=== PATIENT | female | born 1955 | race Caucasian/White ===

== ENCOUNTER → 2019-02-20 | Outpatient (CLI) | payer MEDICARE ==
[~2019-02-20] MED LIST: ASPIRIN81 M1 PO; ATIVAN1 MG PO; Aggrenox 25 MG-1 CER PO; CALCITONIN200 IU/Act NS; CALCIUM 600 +1 EACH PO; COZAAR100 MG PO; CYTOTEC200 MCG PO; DICLOFENAC SOD75 MG PO; DULCOLAX5 M1 PO; FOSAMAX70 MG PO; LANOXIN0.125 MG PO; LIPITOR40 MG PO; MULTI VITAMINS1 TAB PO; MULTIVITAMIN1 TAB PO; NEURONTIN300 MG PO; NORCO 325 MG-101 TAB PO; NORCO 325 MG-7.1 TAB PO; NORFLEX100 MG PO; NORTRIPTYLINE25 M1 PO; NORVASC5 MG PO; OXYCODONE HCL10 M1 PO; PREMPRO 0.3 MG-1 TA1 PO; PROTONIX40 MG PO; TRAMADOL HCL50 MG PO; ULTRAM50 MG PO; VICODIN 5/500 505 MG PO; VOLTAREN50 M1 PO
[2019-02-20 15:36] LABS: BASO % 0.8 % (0.0-1.0); BILIRUBIN NEGATIVE (NEGATIVE); BLOOD NEGATIVE (NEGATIVE); CLARITY CLEAR (CLEAR); COLOR YELLOW (YELLOW); EOS # 0.2 10*3/uL (0.0-0.4); EOS % 3.3 % (1.0-4.0); GLUCOSE NEGATIVE (NEGATIVE); HEMATOCRIT 42.5 % (37.0-47.0); HEMOGLOBIN 14.2 g/dl (12.0-16.0); KETONE NEGATIVE (NEGATIVE); LEUKO ESTERASE 1+ (NEGATIVE); LYMPH # 2.2 10*3/uL (1.3-4.4); MEAN CELL VOLUME 93.6 fl (81.0-99.0); MEAN CORPUSCULAR HGB 31.3 pg (27.0-31.0); MEAN CORPUSCULAR HGB CONC 33.4 g/dl (33.0-37.0); MONO # 0.4 10*3/uL (0.1-1.0); MONO % 7.7 % (3.0-9.0); NEUT # 2.2 10*3/uL (2.3-7.9); NITRITE NEGATIVE (NEGATIVE); PH 5.5 (5.0-9.0); PLATELET COUNT AUTOMATED 125 10*3/uL (130-400); RED BLOOD COUNT 4.54 10*6/uL (4.10-5.10); RED CELL DISTRI WIDTH 12.8 % (0-14.5); RETICULOCYTE % 0.71 % (0.50-2.50); UROBILINOGEN 0.2 E.U./dl (0.2-1.0); WHITE BLOOD COUNT 4.9 10*3/uL (4.8-10.8)
[2019-02-20 15:44] LABS: BACTERIA 1+; HYALINE CAST 0-2; MUCOUS 1+
[2019-02-20 16:12] LABS: ALBUMIN 3.8 gm/dl (3.1-4.5); ALKALINE PHOSPHATASE 117 U/L (45-117); BUN 16 mg/dl (7-24); CHLORIDE 107 mmol/L (98-107); CHOLESTEROL 217 mg/dL (<200); GAMMA GLUTAMYL TRANSPEPTIDASE 67 U/L (5-55); IRON 95 ug/dL (50-170); POTASSIUM 3.7 mmol/L (3.5-5.1); SGOT/AST 21 IU/L (3-35); SGPT/ALT 22 U/L (12-78); SODIUM 137 mmol/L (136-145); TOTAL PROTEIN 8.6 gm/dL (6.4-8.2); TRIGLYCERIDES 131 mg/dl (<150); VLDL CHOLESTEROL 26 mg/dL (6-40)
[2019-02-20 16:26] LABS: DIGOXIN 0.54 ng/ml (0.8-2.0); HDL CHOLESTEROL 69 mg/dl (40-60); LDL CHOLESTEROL 122 mg/dL (9-159); TOTAL IRON BINDING CAPACITY 390 ug/dl (250-450)
[2019-02-20 16:34] LABS: FERRITIN 58.1 ng/mL (10.0-291.0); VITAMIN D, 25-HYDROXY 27.4 ng/mL (30-100)
== END | disposition home or self-care (01) ==
LOC: LAB 14:56
PROVIDERS: Family Medicine
DX: R79.89 Other specified abnormal findings of blood chemistry (principal); R53.83 Other fatigue; E55.9 Vitamin D deficiency, unspecified; Z79.899 Other long term (current) drug therapy

== ENCOUNTER → 2019-12-10 | Outpatient (CLI) | payer MEDICARE ==
[2019-12-10 10:18] LABS: BASO # 0.1 10*3/uL (0.0-0.1); BASO % 0.9 % (0.0-1.0); EOS # 0.2 10*3/uL (0.0-0.4); EOS % 4.3 % (1.0-4.0); HEMATOCRIT 42.4 % (37.0-47.0); HEMOGLOBIN 14.1 g/dl (12.0-16.0); LYMPH # 2.1 10*3/uL (1.3-4.4); LYMPH % 39.4 % (27.0-41.0); MEAN CELL VOLUME 93.4 fl (81.0-99.0); MEAN CORPUSCULAR HGB 31.1 pg (27.0-31.0); MEAN CORPUSCULAR HGB CONC 33.3 g/dl (33.0-37.0); MEAN PLATELET VOLUME 12.1 fl (9.6-12.3); MONO # 0.4 10*3/uL (0.1-1.0); MONO % 8.2 % (3.0-9.0); NEUT # 2.5 10*3/uL (2.3-7.9); PLATELET COUNT AUTOMATED 141 10*3/uL (130-400); RED BLOOD COUNT 4.54 10*6/uL (4.10-5.10); RED CELL DISTRI WIDTH 13.1 % (0-14.5); RETICULOCYTE % 0.99 % (0.50-2.50); WHITE BLOOD COUNT 5.4 10*3/uL (4.8-10.8)
[2019-12-10 10:20] LABS: BILIRUBIN NEGATIVE (NEGATIVE); BLOOD NEGATIVE (NEGATIVE); CLARITY SL CLOUDY (CLEAR); COLOR YELLOW (YELLOW); GLUCOSE NEGATIVE (NEGATIVE); KETONE NEGATIVE (NEGATIVE); LEUKO ESTERASE 2+ (NEGATIVE); NITRITE NEGATIVE (NEGATIVE); PH 6.5 (5.0-9.0); SPECIFIC GRAVITY 1.015 (1.005-1.030); UROBILINOGEN 0.2 E.U./dl (0.2-1.0)
[2019-12-10 10:32] LABS: BACTERIA 1+; WBC 31-40 wbc/hpf (0-5)
[2019-12-10 10:45] LABS: ALBUMIN 3.8 gm/dl (3.1-4.5); ALKALINE PHOSPHATASE 116 U/L (45-117); BUN 13 mg/dl (7-24); CHLORIDE 104 mmol/L (98-107); CHOLESTEROL 231 mg/dL (<200); CPK 78 U/L (26-192); CREATININE 0.87 mg/dL (0.55-1.02); GAMMA GLUTAMYL TRANSPEPTIDASE 67 U/L (5-55); HDL CHOLESTEROL 60 mg/dl (40-60); IRON 146 ug/dL (50-170); LDL CHOLESTEROL 137 mg/dL (9-159); POTASSIUM 3.9 mmol/L (3.5-5.1); SGOT/AST 27 IU/L (3-35); SGPT/ALT 24 U/L (12-78); SODIUM 139 mmol/L (136-145); T3 UPTAKE 30 % (31-39); THYROXINE (T4) TOTAL 14.3 ug/dl (4.8-13.9); TOTAL PROTEIN 8.3 gm/dL (6.4-8.2); TRIGLYCERIDES 168 mg/dl (<150); VLDL CHOLESTEROL 34 mg/dL (6-40)
[2019-12-10 10:56] LABS: DIGOXIN 0.67 ng/ml (0.8-2.0); TOTAL IRON BINDING CAPACITY 373 ug/dl (250-450)
[2019-12-10 11:30] LABS: FERRITIN 96.6 ng/mL (10.0-291.0); VITAMIN D, 25-HYDROXY 20.5 ng/mL (30-100)
== END | disposition home or self-care (01) ==
LOC: RAD 09:00 → LAB 09:02
PROVIDERS: Family Medicine
DX: Z12.31 Encounter for screening mammogram for malignant neoplasm of breast (principal); R79.89 Other specified abnormal findings of blood chemistry; M81.0 Age-related osteoporosis without current pathological fracture; R53.83 Other fatigue; E55.9 Vitamin D deficiency, unspecified; Z79.899 Other long term (current) drug therapy

== ENCOUNTER → 2019-12-29 | Outpatient (CLI) | payer MEDICARE | END | disposition home or self-care (01) | LOC: US 12:50 | DX: E03.8 Other specified hypothyroidism (principal) ==

== ENCOUNTER → 2020-04-13 | Outpatient (CLI) | payer MEDICARE ==
[~2020-04-13] MED LIST changes: +LEVOTHYROXINE50 MCG PO; +MORPHINE SULFAT15 M7 PO; +PROPRANOLOL HCL10 MG PO; +VITAMIN E400 UNI3 PO
[2020-04-13 14:23] LABS: ALBUMIN 3.6 gm/dl (3.1-4.5); BILIRUBIN, DIRECT 0.2 mg/dL (0.0-0.2)
== END | disposition home or self-care (01) ==
LOC: LAB 12:53
PROVIDERS: Nurse Practitioner Family
DX: K75.81 Nonalcoholic steatohepatitis (NASH) (principal); K74.60 Unspecified cirrhosis of liver

== ENCOUNTER → 2020-04-15 | Outpatient (CLI) | payer MEDICARE | END | disposition home or self-care (01) | LOC: US 01:59 | DX: K74.60 Unspecified cirrhosis of liver (principal); Z90.49 Acquired absence of other specified parts of digestive tract ==

== ENCOUNTER → 2020-04-16 | Day surgery (SDC) | payer MEDICARE ==
[~2020-04-16] VITALS: Ht 170.1 cm; Wt 73.5 kg
[2020-04-16 07:15] VITALS: BP 144/75
[2020-04-16 08:30] VITALS: BP 108/57
[2020-04-16 08:45] VITALS: BP 113/60
[2020-04-16 09:00] VITALS: BP 124/60
== END | disposition home or self-care (01) ==
LOC: SDC 04-12 11:00
DX: K29.70 Gastritis, unspecified, without bleeding (principal); I85.10 Secondary esophageal varices without bleeding; K74.60 Unspecified cirrhosis of liver; K21.9 Gastro-esophageal reflux disease without esophagitis; I10 Essential (primary) hypertension; I25.10 Atherosclerotic heart disease of native coronary artery without angina pectoris; J44.9 Chronic obstructive pulmonary disease, unspecified; Z98.890 Other specified postprocedural states; Z79.899 Other long term (current) drug therapy

== ENCOUNTER → 2020-05-27 | Outpatient (CLI) | payer MEDICARE ==
[2020-05-27 14:18] LABS: BASO # 0.1 10*3/uL (0.0-0.1); BASO % 1.2 % (0.0-1.0); EOS # 0.2 10*3/uL (0.0-0.4); EOS % 4.1 % (1.0-4.0); HEMATOCRIT 42.4 % (37.0-47.0); LYMPH # 1.7 10*3/uL (1.3-4.4); LYMPH % 32.5 % (27.0-41.0); MEAN CELL VOLUME 92.2 fl (81.0-99.0); MEAN CORPUSCULAR HGB 30.9 pg (27.0-31.0); MEAN CORPUSCULAR HGB CONC 33.5 g/dl (33.0-37.0); MEAN PLATELET VOLUME 12.9 fl (9.6-12.3); MONO # 0.4 10*3/uL (0.1-1.0); MONO % 6.9 % (3.0-9.0); NEUT # 2.8 10*3/uL (2.3-7.9); NEUT % 55.1 % (47.0-73.0); PLATELET COUNT AUTOMATED 137 10*3/uL (130-400); RED CELL DISTRI WIDTH 13.2 % (0-14.5); RETICULOCYTE % 1.01 % (0.50-2.50); WHITE BLOOD COUNT 5.1 10*3/uL (4.8-10.8)
[2020-05-27 14:47] LABS: ALKALINE PHOSPHATASE 107 U/L (45-117); BUN 16 mg/dl (7-24); CHLORIDE 107 mmol/L (98-107); CHOLESTEROL 268 mg/dL (<200); CPK 80 U/L (26-192); CREATININE 0.97 mg/dL (0.55-1.02); GAMMA GLUTAMYL TRANSPEPTIDASE 67 U/L (5-55); HDL CHOLESTEROL 59 mg/dl (40-60); IRON 117 ug/dL (50-170); LDL CHOLESTEROL 177 mg/dL (9-159); POTASSIUM 4.3 mmol/L (3.5-5.1); SGOT/AST 25 IU/L (3-35); SGPT/ALT 23 U/L (12-78); SODIUM 138 mmol/L (136-145); T3 UPTAKE 31 % (31-39); THYROXINE (T4) TOTAL 14.6 ug/dl (4.8-13.9); TOTAL IRON BINDING CAPACITY 396 ug/dl (250-450); TOTAL PROTEIN 8.8 gm/dL (6.4-8.2); TRIGLYCERIDES 159 mg/dl (<150); VLDL CHOLESTEROL 32 mg/dL (6-40)
[2020-05-27 14:48] LABS: BILIRUBIN, DIRECT 0.2 mg/dL (0.0-0.2); FREE T4 1.26 ng/dl (0.76-1.46)
== END | disposition home or self-care (01) ==
LOC: LAB 12:55
PROVIDERS: Family Medicine; Internal Medicine
DX: E55.9 Vitamin D deficiency, unspecified (principal); R79.89 Other specified abnormal findings of blood chemistry; R53.83 Other fatigue; E03.8 Other specified hypothyroidism; K76.0 Fatty (change of) liver, not elsewhere classified

== ENCOUNTER → 2020-08-06 | Outpatient (CLI) | payer MEDICARE | END | disposition home or self-care (01) | LOC: COVID19 00:19 | PROVIDERS: ATTEND Internal Medicine Gastroenterology | DX: Z11.59 Encounter for screening for other viral diseases (principal) ==

== ENCOUNTER → 2021-02-08 | Outpatient (CLI) | payer MEDICARE ==
[2021-02-08 14:19] LABS: BILIRUBIN Negative (Negative); BLOOD Negative (Negative); CLARITY Clear (Clear); COLOR Yellow (Yellow); GLUCOSE Negative (Negative); KETONE Negative (Negative); LEUKO ESTERASE 1+ (Negative); NITRITE Negative (Negative)
[2021-02-08 14:32] LABS: BASO # 0.1 10*3/uL (0.0-0.1); EOS # 0.2 10*3/uL (0.0-0.4); EOS % 3.4 % (1.0-4.0); HEMATOCRIT 40.2 % (37.0-47.0); LYMPH # 2.1 10*3/uL (1.3-4.4); LYMPH % 35.7 % (27.0-41.0); MEAN CORPUSCULAR HGB 30.5 pg (27.0-31.0); MEAN CORPUSCULAR HGB CONC 33.6 g/dl (33.0-37.0); MEAN PLATELET VOLUME 12.4 fl (9.6-12.3); MONO # 0.5 10*3/uL (0.1-1.0); MONO % 8.8 % (3.0-9.0); NEUT % 50.9 % (47.0-73.0); PLATELET COUNT AUTOMATED 150 10*3/uL (130-400); RED BLOOD COUNT 4.42 10*6/uL (4.10-5.10); RED CELL DISTRI WIDTH 13.2 % (0-14.5); RETICULOCYTE % 1.13 % (0.50-2.50); WHITE BLOOD COUNT 5.9 10*3/uL (4.8-10.8)
[2021-02-08 14:48] LABS: ALBUMIN 3.7 gm/dl (3.1-4.5); BUN 16 mg/dl (7-24); CHLORIDE 105 mmol/L (98-107); CHOLESTEROL 288 mg/dL (<200); CREATININE 0.92 mg/dL (0.55-1.02); GAMMA GLUTAMYL TRANSPEPTIDASE 55 U/L (5-55); HDL CHOLESTEROL 55 mg/dl (40-60); IRON 81 ug/dL (50-170); LDL CHOLESTEROL 180 mg/dL (9-159); POTASSIUM 3.9 mmol/L (3.5-5.1); SGOT/AST 22 IU/L (3-35); SGPT/ALT 23 U/L (12-78); SODIUM 138 mmol/L (136-145); THYROXINE (T4) TOTAL 13.8 ug/dl (4.8-13.9); TOTAL IRON BINDING CAPACITY 368 ug/dl (250-450); TOTAL PROTEIN 8.4 gm/dL (6.4-8.2); TRIGLYCERIDES 264 mg/dl (<150); VLDL CHOLESTEROL 53 mg/dL (6-40)
[2021-02-08 15:01] LABS: ALKALINE PHOSPHATASE 114 U/L (45-117); DIGOXIN 0.87 ng/ml (0.8-2.0); T3 UPTAKE 30 % (31-39)
[2021-02-08 15:53] LABS: BACTERIA TRACE
[2021-02-08 17:22] LABS: FERRITIN 82.1 ng/mL (10.0-291.0)
== END | disposition home or self-care (01) ==
LOC: LAB 13:22 → US 13:30
PROVIDERS: Family Medicine; ATTEND Internal Medicine
DX: E04.1 Nontoxic single thyroid nodule (principal); R79.89 Other specified abnormal findings of blood chemistry; R53.83 Other fatigue; E78.5 Hyperlipidemia, unspecified; E55.9 Vitamin D deficiency, unspecified

== ENCOUNTER → 2021-03-07 | Outpatient (CLI) | payer MEDICARE ==
[2021-03-07 12:56] LABS: ALBUMIN 3.6 gm/dl (3.1-4.5); FREE T4 1.29 ng/dl (0.76-1.46); TOTAL PROTEIN 8.4 gm/dL (6.4-8.2)
[2021-03-07 13:03] LABS: BILIRUBIN, DIRECT 0.2 mg/dL (0.0-0.2); THYROID STIM HORMONE (HS) 3.2 uIU/ml (0.358-4.75)
== END | disposition home or self-care (01) ==
LOC: LAB 11:33
PROVIDERS: ATTEND Internal Medicine
DX: E55.9 Vitamin D deficiency, unspecified (principal); E03.8 Other specified hypothyroidism; E78.5 Hyperlipidemia, unspecified; K76.0 Fatty (change of) liver, not elsewhere classified

== ENCOUNTER → 2022-02-16 | Outpatient (CLI) | payer MEDICARE | END | disposition home or self-care (01) | LOC: RAD 12:22 | PROVIDERS: ATTEND Anesthesiology Pain Medicine | DX: M51.37 Other intervertebral disc degeneration, lumbosacral region (principal); M96.1 Postlaminectomy syndrome, not elsewhere classified ==

== ENCOUNTER → 2022-04-10 | Outpatient (CLI) | payer MEDICARE ==
[2022-04-10 10:40] LABS: BASO # 0.1 10*3/uL (0.0-0.1); BASO % 1.2 % (0.0-1.0); EOS # 0.2 10*3/uL (0.0-0.4); HEMATOCRIT 41.3 % (37.0-47.0); LYMPH # 1.7 10*3/uL (1.3-4.4); LYMPH % 28.4 % (27.0-41.0); MEAN CELL VOLUME 91.2 fl (81.0-99.0); MEAN CORPUSCULAR HGB 30.5 pg (27.0-31.0); MEAN CORPUSCULAR HGB CONC 33.4 g/dl (33.0-37.0); MEAN PLATELET VOLUME 12.4 fl (9.6-12.3); MONO # 0.5 10*3/uL (0.1-1.0); MONO % 8.4 % (3.0-9.0); NEUT # 3.5 10*3/uL (2.3-7.9); NEUT % 57.8 % (47.0-73.0); PLATELET COUNT AUTOMATED 148 10*3/uL (130-400); RED BLOOD COUNT 4.53 10*6/uL (4.10-5.10); RETICULOCYTE % 0.97 % (0.50-2.50)
[2022-04-10 10:49] LABS: BILIRUBIN Negative (Negative); BLOOD Negative (Negative); CLARITY Clear (Clear); COLOR Yellow (Yellow); GLUCOSE Negative (Negative); KETONE Negative (Negative); LEUKO ESTERASE 1+ (Negative); NITRITE Negative (Negative)
[2022-04-10 11:09] LABS: ALKALINE PHOSPHATASE 113 U/L (45-117); BUN 14 mg/dl (7-24); CHLORIDE 102 mmol/L (98-107); CHOLESTEROL 148 mg/dL (<200); CREATININE 0.92 mg/dL (0.55-1.02); GAMMA GLUTAMYL TRANSPEPTIDASE 92 U/L (5-55); IRON 89 ug/dL (50-170); LDL CHOLESTEROL 59 mg/dL (9-159); POTASSIUM 3.9 mmol/L (3.5-5.1); SGOT/AST 31 IU/L (3-35); SGPT/ALT 30 U/L (12-78); SODIUM 137 mmol/L (136-145); TOTAL IRON BINDING CAPACITY 397 ug/dl (250-450); TOTAL PROTEIN 8.5 gm/dL (6.4-8.2); TRIGLYCERIDES 169 mg/dl (<150)
[2022-04-10 11:16] LABS: VITAMIN D, 25-HYDROXY 56.1 ng/mL (30-100)
[2022-04-10 11:17] LABS: FERRITIN 72.9 ng/mL (10.0-291.0)
[2022-04-10 11:18] LABS: DIGOXIN 1.02 ng/ml (0.8-2.0)
== END | disposition home or self-care (01) ==
LOC: LAB 10:14
PROVIDERS: ATTEND Family Medicine
DX: E78.5 Hyperlipidemia, unspecified (principal); E55.9 Vitamin D deficiency, unspecified; R79.89 Other specified abnormal findings of blood chemistry; R53.83 Other fatigue; R74.8 Abnormal levels of other serum enzymes

== ENCOUNTER → 2022-06-01 | Outpatient (CLI) | payer MEDICARE | END | disposition home or self-care (01) | LOC: CARD 13:00 | PROVIDERS: ATTEND Internal Medicine Cardiovascular Disease | DX: R06.00 Dyspnea, unspecified (principal) ==

== ENCOUNTER → 2022-12-12 | Outpatient (CLI) | payer MEDICARE | END | disposition home or self-care (01) | LOC: RAD 15:03 | PROVIDERS: ATTEND Orthopaedic Surgery | DX: M76.9 Unspecified enthesopathy, lower limb, excluding foot (principal) ==

== ENCOUNTER → 2023-06-25 | Outpatient (CLI) | payer MEDICARE ==
[2023-06-25 13:33] LABS: BASO # 0.1 10*3/uL (0.0-0.1); EOS # 0.2 10*3/uL (0.0-0.4); EOS % 4.2 % (1.0-4.0); HEMATOCRIT 37.7 % (37.0-47.0); LYMPH # 1.5 10*3/uL (1.3-4.4); LYMPH % 29.6 % (27.0-41.0); MEAN CELL VOLUME 91.1 fl (81.0-99.0); MEAN CORPUSCULAR HGB 30.4 pg (27.0-31.0); MEAN CORPUSCULAR HGB CONC 33.4 g/dl (33.0-37.0); MEAN PLATELET VOLUME 12.1 fl (9.6-12.3); MONO # 0.4 10*3/uL (0.1-1.0); MONO % 8.3 % (3.0-9.0); NEUT # 2.9 10*3/uL (2.3-7.9); NEUT % 56.9 % (47.0-73.0); PLATELET COUNT AUTOMATED 150 10*3/uL (130-400); RED BLOOD COUNT 4.14 10*6/uL (4.10-5.10); RED CELL DISTRI WIDTH 12.7 % (0-14.5); RETICULOCYTE % 1.14 % (0.50-2.50)
[2023-06-25 13:34] LABS: BILIRUBIN Negative (Negative); BLOOD Negative (Negative); CLARITY Clear (Clear); COLOR Yellow (Yellow); GLUCOSE Negative (Negative); KETONE Negative (Negative); LEUKO ESTERASE 2+ (Negative); NITRITE Negative (Negative); SPECIFIC GRAVITY 1.015 (1.001-1.030)
[2023-06-25 13:42] LABS: EPITHELIAL CELLS 21-30
[2023-06-25 13:43] LABS: BACTERIA 2+; WBC 16-20 wbc/hpf (0-5)
[2023-06-25 14:03] LABS: ALKALINE PHOSPHATASE 116 U/L (46-116); BUN 14 mg/dl (9-23); CHLORIDE 102 mmol/L (98-107); CHOLESTEROL 141 mg/dL (<200); DIGOXIN 0.53 ng/ml (0.8-2.0); GAMMA GLUTAMYL TRANSPEPTIDASE 73 U/L (0-73); LDL CHOLESTEROL 55 mg/dL (9-159); POTASSIUM 3.7 mmol/L (3.4-5.1); SGPT/ALT 13 U/L (10-49); T3 UPTAKE 20.8 % (22.4-36.7); TOTAL PROTEIN 7.9 gm/dL (6.0-8.0); TRIGLYCERIDES 197 mg/dl (<150)
[2023-06-25 14:04] LABS: VITAMIN D, 25-HYDROXY 41.6 ng/mL (30-100)
== END | disposition home or self-care (01) ==
LOC: LAB 13:05
PROVIDERS: ATTEND Family Medicine
DX: E55.9 Vitamin D deficiency, unspecified (principal); R79.89 Other specified abnormal findings of blood chemistry; R53.83 Other fatigue; E78.5 Hyperlipidemia, unspecified

== ENCOUNTER → 2023-09-20 | Outpatient (CLI) | payer MEDICARE | END | disposition home or self-care (01) | LOC: MAMMO 13:59 | PROVIDERS: ATTEND Family Medicine | DX: Z12.31 Encounter for screening mammogram for malignant neoplasm of breast (principal) ==

== ENCOUNTER → 2023-12-26 | Outpatient (CLI) | payer MEDICARE ==
[2023-12-26 13:09] LABS: BASO # 0.1 10*3/uL (0.0-0.1); BASO % 0.8 % (0.0-1.0); EOS # 0.3 10*3/uL (0.0-0.4); EOS % 4.3 % (1.0-4.0); HEMATOCRIT 39.6 % (37.0-47.0); LYMPH # 1.3 10*3/uL (1.3-4.4); LYMPH % 21.1 % (27.0-41.0); MEAN CELL VOLUME 90.2 fl (81.0-99.0); MEAN CORPUSCULAR HGB 29.8 pg (27.0-31.0); MEAN CORPUSCULAR HGB CONC 33.1 g/dl (33.0-37.0); MEAN PLATELET VOLUME 11.9 fl (9.6-12.3); MONO # 0.6 10*3/uL (0.1-1.0); MONO % 9.6 % (3.0-9.0); NEUT % 63.9 % (47.0-73.0); PLATELET COUNT AUTOMATED 179 10*3/uL (130-400); RED BLOOD COUNT 4.39 10*6/uL (4.10-5.10); RED CELL DISTRI WIDTH 12.4 % (0-14.5); RETICULOCYTE % 0.94 % (0.50-2.50); WHITE BLOOD COUNT 6.3 10*3/uL (4.8-10.8)
[2023-12-26 13:32] LABS: BILIRUBIN Negative (Negative); BLOOD Negative (Negative); CLARITY Clear (Clear); COLOR Yellow (Yellow); GLUCOSE Negative (Negative); KETONE Negative (Negative); LEUKO ESTERASE 2+ (Negative); NITRITE Negative (Negative)
[2023-12-26 13:45] LABS: ALKALINE PHOSPHATASE 127 U/L (46-116); BUN 14 mg/dl (9-23); CHLORIDE 100 mmol/L (98-107); CHOLESTEROL 139 mg/dL (<200); DIGOXIN 0.63 ng/ml (0.8-2.0); GAMMA GLUTAMYL TRANSPEPTIDASE 79 U/L (0-73); LDL CHOLESTEROL 61 mg/dL (9-159); POTASSIUM 3.9 mmol/L (3.4-5.1); SGPT/ALT 12 U/L (5-49); T3 UPTAKE 22.9 % (22.4-36.7); THYROXINE (T4) TOTAL 10.9 ug/dl (4.5-10.9); TOTAL PROTEIN 8.3 gm/dL (6.0-8.0); TRIGLYCERIDES 144 mg/dl (<150)
[2023-12-26 13:47] LABS: BACTERIA TRACE; WBC 16-20 wbc/hpf (0-5)
[2023-12-26 14:39] LABS: VITAMIN D, 25-HYDROXY 56.8 ng/mL (30-100)
== END | disposition home or self-care (01) ==
LOC: LAB 12:49
PROVIDERS: ATTEND Family Medicine
DX: R79.89 Other specified abnormal findings of blood chemistry (principal); R53.83 Other fatigue; E55.9 Vitamin D deficiency, unspecified; E78.5 Hyperlipidemia, unspecified

== ENCOUNTER → 2024-06-30 | Outpatient (CLI) | payer MEDICARE ==
[2024-06-30 13:36] LABS: BILIRUBIN Negative (Negative); BLOOD Negative (Negative); CLARITY Clear (Clear); COLOR Yellow (Yellow); GLUCOSE Negative (Negative); KETONE Negative (Negative); LEUKO ESTERASE 2+ (Negative); NITRITE Negative (Negative); SPECIFIC GRAVITY 1.015 (1.001-1.030)
[2024-06-30 13:37] LABS: BASO % 0.7 % (0.0-1.0); EOS # 0.3 10*3/uL (0.0-0.4); EOS % 4.5 % (1.0-4.0); HEMATOCRIT 36.9 % (37.0-47.0); LYMPH # 1.4 10*3/uL (1.3-4.4); LYMPH % 24.5 % (27.0-41.0); MEAN CELL VOLUME 92.3 fl (81.0-99.0); MEAN CORPUSCULAR HGB 30.5 pg (27.0-31.0); MEAN CORPUSCULAR HGB CONC 33.1 g/dl (33.0-37.0); MEAN PLATELET VOLUME 11.6 fl (9.6-12.3); MONO # 0.6 10*3/uL (0.1-1.0); NEUT # 3.4 10*3/uL (2.3-7.9); NEUT % 60.1 % (47.0-73.0); PLATELET COUNT AUTOMATED 139 10*3/uL (130-400); RETICULOCYTE % 1.03 % (0.50-2.50); WHITE BLOOD COUNT 5.6 10*3/uL (4.8-10.8)
[2024-06-30 13:46] LABS: BACTERIA 1+; MUCOUS TRACE; WBC 31-40 wbc/hpf (0-5)
[2024-06-30 14:02] LABS: ALKALINE PHOSPHATASE 111 U/L (46-116); BUN 12 mg/dl (9-23); CHLORIDE 102 mmol/L (98-107); CHOLESTEROL 130 mg/dL (<200); GAMMA GLUTAMYL TRANSPEPTIDASE 71 U/L (0-73); LDL CHOLESTEROL 48 mg/dL (9-159); POTASSIUM 3.7 mmol/L (3.4-5.1); SGPT/ALT 10 U/L (5-49); TOTAL PROTEIN 7.8 gm/dL (6.0-8.0); TRIGLYCERIDES 193 mg/dl (<150)
[2024-06-30 14:17] LABS: VITAMIN D, 25-HYDROXY 60.7 ng/mL (30-100)
== END | disposition home or self-care (01) ==
LOC: LAB 13:08
PROVIDERS: ATTEND Family Medicine
DX: R79.89 Other specified abnormal findings of blood chemistry (principal); R53.83 Other fatigue; E55.9 Vitamin D deficiency, unspecified; E78.5 Hyperlipidemia, unspecified

== ENCOUNTER → 2024-08-28 | Outpatient (CLI) | payer MEDICARE ==
[2024-08-28 15:06] LABS: BILIRUBIN Negative (Negative); BLOOD Negative (Negative); CLARITY Clear (Clear); COLOR Yellow (Yellow); GLUCOSE Negative (Negative); KETONE Negative (Negative); LEUKO ESTERASE Trace (Negative); NITRITE Negative (Negative); SPECIFIC GRAVITY 1.015 (1.001-1.030)
[2024-08-28 15:21] LABS: URINE CREATININE RANDOM 50.99 mg/dL
[2024-08-28 15:34] LABS: BUN 14 mg/dl (9-23); CHLORIDE 105 mmol/L (98-107); POTASSIUM 3.9 mmol/L (3.4-5.1)
[2024-08-28 15:41] LABS: BACTERIA 1+
== END | disposition home or self-care (01) ==
LOC: LAB 14:12
PROVIDERS: ATTEND Internal Medicine Nephrology
DX: N18.30 Chronic kidney disease, stage 3 unspecified (principal)

== ENCOUNTER → 2024-10-16 | Outpatient (CLI) | payer MEDICARE ==
[2024-10-16 10:33] LABS: BILIRUBIN Negative (Negative); BLOOD Negative (Negative); CLARITY Clear (Clear); COLOR Yellow (Yellow); GLUCOSE Negative (Negative); KETONE Negative (Negative); LEUKO ESTERASE Trace (Negative); NITRITE Negative (Negative)
[2024-10-16 10:34] LABS: BASO # 0.1 10*3/uL (0.0-0.1); BASO % 1.1 % (0.0-1.0); EOS # 0.3 10*3/uL (0.0-0.4); EOS % 5.3 % (1.0-4.0); HEMATOCRIT 39.9 % (37.0-47.0); MEAN CELL VOLUME 92.8 fl (81.0-99.0); MEAN CORPUSCULAR HGB 29.8 pg (27.0-31.0); MEAN CORPUSCULAR HGB CONC 32.1 g/dl (33.0-37.0); MEAN PLATELET VOLUME 12.4 fl (9.6-12.3); MONO # 0.4 10*3/uL (0.1-1.0); MONO % 9.4 % (3.0-9.0); NEUT # 2.5 10*3/uL (2.3-7.9); NEUT % 53.7 % (47.0-73.0); PLATELET COUNT AUTOMATED 131 10*3/uL (130-400); RED CELL DISTRI WIDTH 12.9 % (0-14.5); RETICULOCYTE % 0.89 % (0.50-2.50); WHITE BLOOD COUNT 4.7 10*3/uL (4.8-10.8)
[2024-10-16 10:45] LABS: BACTERIA TRACE; MUCOUS 1+
[2024-10-16 10:58] LABS: ALKALINE PHOSPHATASE 57 U/L (46-116); BUN 13 mg/dl (9-23); CHLORIDE 107 mmol/L (98-107); CHOLESTEROL 137 mg/dL (<200); GAMMA GLUTAMYL TRANSPEPTIDASE 48 U/L (0-73); LDL CHOLESTEROL 53 mg/dL (9-159); POTASSIUM 3.9 mmol/L (3.4-5.1); SGPT/ALT 19 U/L (5-49); T3 UPTAKE 24.9 % (22.4-36.7); THYROXINE (T4) TOTAL 13.4 ug/dl (4.5-10.9); TOTAL PROTEIN 8.1 gm/dL (6.0-8.0); TRIGLYCERIDES 97 mg/dl (<150); URIC ACID 3.8 mg/dL (3.1-7.8)
[2024-10-16 11:00] LABS: B-hCG (QUALITATIVE) BORDERLINE (NEGATIVE)
[2024-10-16 11:10] LABS: VITAMIN D, 25-HYDROXY 61.9 ng/mL (30-100)
[2024-10-17 04:04] LABS: DHEA SULFATE 9.1 ug/dL (20.4-186.6)
[2024-10-17 15:05] LABS: ANTI-DSDNA ANTIBODIES 2 IU/mL (0-9)
[2024-10-19 16:03] LABS: INSULIN-LIKE GROWTH FACTOR-1 35 ng/mL (52-196)
[2024-10-21 19:02] LABS: DEHYDROEPIANDROSTERONE 76 ng/dL (21-402)
[2024-10-22 13:03] LABS: TESTOS, FREE 0.4 pg/mL (0.0-4.2)
== END | disposition home or self-care (01) ==
LOC: LAB 00:10 → US 09:00 → LAB 09:00
PROVIDERS: ATTEND Family Medicine
DX: K74.60 Unspecified cirrhosis of liver (principal); R94.5 Abnormal results of liver function studies; K76.0 Fatty (change of) liver, not elsewhere classified; R79.89 Other specified abnormal findings of blood chemistry; R53.83 Other fatigue; E78.5 Hyperlipidemia, unspecified; E55.9 Vitamin D deficiency, unspecified; Z90.49 Acquired absence of other specified parts of digestive tract; Z79.899 Other long term (current) drug therapy

== ENCOUNTER → 2025-02-13 | Outpatient (CLI) | payer MEDICARE ==
[2025-02-13 14:44] LABS: BASO % 0.8 % (0.0-1.0); BILIRUBIN Negative (Negative); BLOOD Negative (Negative); CLARITY Clear (Clear); COLOR Yellow (Yellow); EOS # 0.2 10*3/uL (0.0-0.4); EOS % 3.4 % (1.0-4.0); GLUCOSE Negative (Negative); HEMATOCRIT 38.5 % (37.0-47.0); KETONE Negative (Negative); LEUKO ESTERASE 2+ (Negative); MEAN CELL VOLUME 91.7 fl (81.0-99.0); MEAN CORPUSCULAR HGB 30.2 pg (27.0-31.0); MEAN PLATELET VOLUME 11.9 fl (9.6-12.3); MONO # 0.5 10*3/uL (0.1-1.0); MONO % 9.5 % (3.0-9.0); NEUT # 2.6 10*3/uL (2.3-7.9); NEUT % 54.8 % (47.0-73.0); NITRITE Negative (Negative); PLATELET COUNT AUTOMATED 147 10*3/uL (130-400); RED CELL DISTRI WIDTH 12.8 % (0-14.5); WHITE BLOOD COUNT 4.8 10*3/uL (4.8-10.8)
[2025-02-13 14:52] LABS: BACTERIA 1+; RBC 0-2 rbc/hpf (0-2); WBC 16-20 wbc/hpf (0-5)
[2025-02-13 15:09] LABS: BUN 19 mg/dl (9-23); CHLORIDE 105 mmol/L (98-107); POTASSIUM 4.1 mmol/L (3.4-5.1)
[2025-02-13 15:12] LABS: VITAMIN D, 25-HYDROXY 69.1 ng/mL (30-100)
== END | disposition home or self-care (01) ==
LOC: LAB 14:22
PROVIDERS: ATTEND Internal Medicine Nephrology
DX: N25.81 Secondary hyperparathyroidism of renal origin (principal); N18.30 Chronic kidney disease, stage 3 unspecified; D63.1 Anemia in chronic kidney disease

== ENCOUNTER → 2025-09-21 | Outpatient (CLI) | payer MEDICARE | END | disposition home or self-care (01) | LOC: MRI 12:01 | PROVIDERS: ATTEND Orthopaedic Surgery | DX: M17.12 Unilateral primary osteoarthritis, left knee (principal); M71.22 Synovial cyst of popliteal space [Baker], left knee; M25.862 Other specified joint disorders, left knee; M25.462 Effusion, left knee; M23.92 Unspecified internal derangement of left knee; M25.562 Pain in left knee ==

== ENCOUNTER → 2025-10-12 | Outpatient (CLI) | payer MEDICARE ==
[2025-10-12 13:33] LABS: BASO # 0.0 10*3/uL (0.0-0.1); BASO % 1.0 % (0.0-1.0); EOS # 0.2 10*3/uL (0.0-0.4); EOS % 4.0 % (1.0-4.0); MEAN CELL VOLUME 93.6 fl (81.0-99.0); MEAN CORPUSCULAR HGB 30.7 pg (27.0-31.0); MEAN PLATELET VOLUME 11.8 fl (9.6-12.3); MONO # 0.4 10*3/uL (0.1-1.0); MONO % 8.8 % (3.0-9.0); NEUT # 2.4 10*3/uL (2.3-7.9); NEUT % 57.7 % (47.0-73.0); NUCLEATED RED BLOOD CELL 0.0 % (0.0-0.0); NUCLEATED RED BLOOD CELL 0.0 10*3/uL (0.0-0.0); PLATELET COUNT AUTOMATED 152 10*3/uL (130-400); RED CELL DISTRI WIDTH 13.1 % (0-14.5); RETICULOCYTE % 1.04 % (0.50-2.50)
[2025-10-12 13:38] LABS: BILIRUBIN Negative (Negative); BLOOD Negative (Negative); CLARITY Clear (Clear); COLOR Yellow (Yellow); KETONE Negative (Negative); LEUKO ESTERASE 2+ (Negative); NITRITE Negative (Negative); PH 6.5 (4.5-8.0); SPECIFIC GRAVITY 1.015 (1.001-1.030); UROBILINOGEN 1.0 E.U./dl (0.0-1.0)
[2025-10-12 13:58] LABS: BUN 14 mg/dl (9-23); GAMMA GLUTAMYL TRANSFERASE 46 U/L (0-38); LDL CHOLESTEROL 53 mg/dL (9-159); SGPT/ALT 21 U/L (5-49); T3 UPTAKE 24.0 % (22.4-36.7); THYROXINE (T4) TOTAL 12.8 ug/dl (4.5-10.9)
[2025-10-12 14:09] LABS: VITAMIN D, 25-HYDROXY 65.9 ng/mL (30-100)
[2025-10-12 14:22] LABS: BACTERIA 1+
== END | disposition home or self-care (01) ==
LOC: LAB 13:11
PROVIDERS: ATTEND Family Medicine
DX: E55.9 Vitamin D deficiency, unspecified (principal); E78.5 Hyperlipidemia, unspecified; R79.89 Other specified abnormal findings of blood chemistry; R53.83 Other fatigue